=== PATIENT | male | born 1965 | race Caucasian/White ===

== ENCOUNTER 2018-03-04 13:09 | Inpatient (IN) | payer MEDICAID ==
[~2018-03-04] VITALS: Ht 157.5 cm; Wt 52.0 kg
[~2018-03-04 13:09] MED LIST: RANI-290 PO; [UNRECOGNIZED DRUG - CODE] TP
[2018-03-04] MEDS ORDERED: ondansetron/PF 4mg/2ml inj IV ONE (13:25)
[2018-03-04] MEDS ORDERED: normal saline 1000ML IV soln IVB ONE (13:25)
[2018-03-04] MEDS ORDERED: ipratropium/albuterol 3ml nebule NEB ONE (13:40)
[2018-03-04] MEDS ORDERED: albuterol 2.5 MG/3 ML nebule NEB ONE (13:40)
[2018-03-04 13:41] LABS: BASOPHILS # (AUTO) 0.1 X10'3 (0-0.2); BASOPHILS % (AUTO) 0.6 % (0-1); EOSINOPHILS # (AUTO) 0.3 X10'3 (0-0.9); EOSINOPHILS % (AUTO) 1.7 % (0-6); HEMATOCRIT 37.1 % (42.0-52.0); HEMOGLOBIN 12.8 g/dl (14.0-17.9); LYMPHOCYTES # (AUTO) 1.2 X10'3 (1.1-4.8); LYMPHOCYTES % (AUTO) 8.2 % (21-51); MEAN CORPUSCULAR HEMOGLOBIN 30.2 PG (27.0-31.0); MEAN CORPUSCULAR HGB CONC 34.5 % (33.0-36.5); MEAN CORPUSCULAR VOLUME 87.5 FL (78-98); MONOCYTES # (AUTO) 0.5 X10'3 (0-0.9); MONOCYTES % (AUTO) 3.5 % (2-12); NEUTROPHILS # (AUTO) 12.8 X10'3 (1.8-7.7); PLATELET COUNT 558 X10'3 (140-440); RED BLOOD COUNT 4.24 X10'6 (4.70-6.10); WHITE BLOOD COUNT 14.9 X10'3 (4.5-11.0)
[2018-03-04] MEDS ORDERED: ondansetron 4mg rapidly disintigrating tab PO ONE (13:50)
[2018-03-04 13:56] LABS: ALANINE AMINOTRANSFERASE 23 U/L (12-78); ALBUMIN 3.1 G/DL (3.4-5.0); ALBUMIN/GLOBULIN RATIO 0.8 (1.1-1.5); ALKALINE PHOSPHATASE 49 IU/L (46-116); ANION GAP 10 (8-16); BILIRUBIN,TOTAL 0.5 MG/DL (0.1-1.0); BLOOD UREA NITROGEN 35 MG/DL (7-18); BUN/CREATININE RATIO 21.2 (5.4-32.0); CALCIUM 8.6 MG/DL (8.5-10.1); CHLORIDE 103 MMOL/L (99-107); CREATININE 1.65 MG/DL (0.60-1.10); GLUCOSE 80 MG/DL (70-104); LIPASE 69 U/L (73-393); SODIUM 133 MMOL/L (135-145); TOTAL CARBON DIOXIDE 19.8 MMOL/L (24-32); TOTAL PROTEIN 7.2 G/DL (6.4-8.2); eGFR 44 ML/MIN
[2018-03-04 13:59] LABS: ASPARTATE AMINO TRANSFERASE 29 U/L (10-37); POTASSIUM 4.8 MMOL/L (3.5-5.1)
[2018-03-04 15:32] LABS: CLARITY,URINE SLIGHTLY CLOUDY (Clear); GLUCOSE, URINE NEGATIVE (Neg); KETONES,URINE TRACE mg/dl (Neg); LEUKOCYTE ESTERASE ,URINE NEGATIVE (Neg); NITRITES, URINE NEGATIVE (Neg); OCCULT BLOOD,URINE LARGE (Neg); PH,URINE 5.5 (4.8-8.0); PROTEIN,URINE >=300 mg/dl (Neg); UROBILINOGEN,URINE 0.2 E.U/dL (0.2-1.0)
[2018-03-04 15:34] LABS: COLOR,URINE DARK YELLOW (Yellow); UA COLLECTION TYPE CLN CATCH MIDSTREAM
[2018-03-04 15:39] LABS: COARSE GRANULAR CAST 0-3 /LPF (NEGATIVE); MUCUS STRANDS NONE SEEN /LPF (Neg); SQUAMOUS EPITHELIAL CELL,UR FEW /LPF (FEW)
[2018-03-04 15:40] LABS: RBC,URINE TNTC /HPF (0-2)
[2018-03-04 15:43] LABS: BACTERIA,URINE NONE SEEN /HPF (Neg)
[2018-03-04 15:44] LABS: AMORPHOUS URATES 1+
[2018-03-04] MEDS ORDERED: NO HOME MEDS (15:47)
[2018-03-04] MEDS ORDERED: ondansetron/PF 4mg/2ml inj IV PRN (17:30)
[2018-03-04] MEDS ORDERED: magnesium hydroxide 30ml (MOM) UD suspension PO PRN (17:30)
[2018-03-04] MEDS ORDERED: mag hydrox/Alum hydrox/simeth 30ml oral suspension PO PRN (17:30)
[2018-03-04 17:50] LABS: PROTHROMBIN TIME 10.6 SECONDS (9.0-12.0)
[2018-03-04] MEDS ORDERED: bismuth subsalicylate 525mg/30ml oral suspension PO PRN (19:10)
[2018-03-04] MEDS ORDERED: levoFLOXACIN-Levaquin 500mg/D5 100 ML IV ONE (19:10)
[2018-03-04] MEDS: metroNIDAZOLE 500mg tablet PO SCH (20:36)
[2018-03-04] MEDS: lactobacillus rhamnosus 10,000 MMU CELLS/CAPSULE PO SCH (20:37)
[2018-03-04 21:52] VITALS: BP 167/83
[2018-03-04] MEDS ORDERED: pneumococcal 23-VAL P-sac vacc 25 mcg/0.5ml vial IMVAC ONE (22:05)
[2018-03-05 05:00] VITALS: BP 150/78
[2018-03-05 05:47] LABS: BASOPHILS % (AUTO) 0.3 % (0-1); EOSINOPHILS # (AUTO) 0.3 X10'3 (0-0.9); EOSINOPHILS % (AUTO) 2.1 % (0-6); HEMATOCRIT 30.7 % (42.0-52.0); HEMOGLOBIN 10.5 g/dl (14.0-17.9); LYMPHOCYTES # (AUTO) 1.4 X10'3 (1.1-4.8); LYMPHOCYTES % (AUTO) 11.8 % (21-51); MEAN CORPUSCULAR VOLUME 88.1 FL (78-98); MEAN PLATELET VOLUME 6.4 FL (7.4-10.4); MONOCYTES # (AUTO) 0.6 X10'3 (0-0.9); MONOCYTES % (AUTO) 5.4 % (2-12); NEUTROPHILS # (AUTO) 9.6 X10'3 (1.8-7.7); NEUTROPHILS % (AUTO) 80.4 % (42-75); PLATELET COUNT 444 X10'3 (140-440); RED BLOOD COUNT 3.49 X10'6 (4.70-6.10); RED CELL DISTRIBUTION WIDTH 13.8 % (11.5-14.5); WHITE BLOOD COUNT 11.9 X10'3 (4.5-11.0)
[2018-03-05 06:00] LABS: ALBUMIN 2.3 G/DL (3.4-5.0); ANION GAP 7 (8-16); BLOOD UREA NITROGEN 37 MG/DL (7-18); BUN/CREATININE RATIO 21.1 (5.4-32.0); CALCIUM 7.9 MG/DL (8.5-10.1); CHLORIDE 107 MMOL/L (99-107); CREATININE 1.75 MG/DL (0.60-1.10); GLUCOSE 98 MG/DL (70-104); POTASSIUM 4.7 MMOL/L (3.5-5.1); SODIUM 135 MMOL/L (135-145); TOTAL CARBON DIOXIDE 20.7 MMOL/L (24-32); TOTAL PROTEIN 5.5 G/DL (6.4-8.2); eGFR 41 ML/MIN
[2018-03-05] MEDS: ondansetron/PF 4mg/2ml inj IV PRN (06:56)
[2018-03-05] MEDS: acetaminophen 325mg tablet PO PRN (06:56)
[2018-03-05] MEDS: lactobacillus rhamnosus 10,000 MMU CELLS/CAPSULE PO SCH ×2 (07:34→20:55)
[2018-03-05] MEDS: metroNIDAZOLE 500mg tablet PO SCH ×2 (07:34→12:43)
[2018-03-05 09:36] LABS: C DIFF ANTIGEN NEGATIVE (NEGATIVE); C DIFF SPECIMEN=DIARRHEA? ACCEPTABLE; C DIFFICILE TOXINS A&B NEGATIVE (Neg)
[2018-03-05 10:00] VITALS: BP 148/82
[2018-03-05] MEDS ORDERED: LIDOcaine 1%/PF (10mg/ml) 5ml vial ONE (10:54)
[2018-03-05] MEDS ORDERED: levoFLOXACIN-Levaquin 250mg/D5 50 ML IV SCH (17:00)
[2018-03-05 19:00] VITALS: BP 168/92
[2018-03-05] MEDS: CefTRIAXone/D5W-Rocephin 1gm 50 ML IV SCH (20:55)
[2018-03-05] MEDS: azithromycin 250mg tablet PO SCH (20:56)
[2018-03-05] MEDS: albuterol 2.5 MG/3 ML nebule NEB PRN (21:55)
[2018-03-05 22:00] VITALS: BP 170/92
[2018-03-06 02:56] LABS: URINE AMPHETAMINE SCREEN NEGATIVE (Neg); URINE BARBITUATE SCREEN NEGATIVE (Neg); URINE BENZODIAZEPINES SCREEN NEGATIVE (Neg); URINE CANNABINOID SCREEN NEGATIVE (Neg); URINE COCAINE SCREEN NEGATIVE (Neg); URINE METHADONE SCREEN NEGATIVE (Neg); URINE OPIATE SCREEN NEGATIVE (Neg); URINE PHENCYCLIDINE SCREEN NEGATIVE (Neg)
[2018-03-06] MEDS: albuterol 2.5 MG/3 ML nebule NEB PRN ×3 (04:06→20:56)
[2018-03-06 05:44] LABS: BASOPHILS % (AUTO) 0.6 % (0-1); EOSINOPHILS # (AUTO) 0.4 X10'3 (0-0.9); EOSINOPHILS % (AUTO) 5.1 % (0-6); HEMATOCRIT 29.3 % (42.0-52.0); HEMOGLOBIN 9.8 g/dl (14.0-17.9); LYMPHOCYTES # (AUTO) 1.7 X10'3 (1.1-4.8); LYMPHOCYTES % (AUTO) 23.2 % (21-51); MEAN CORPUSCULAR HGB CONC 33.6 % (33.0-36.5); MEAN CORPUSCULAR VOLUME 89.2 FL (78-98); MEAN PLATELET VOLUME 6.4 FL (7.4-10.4); MONOCYTES # (AUTO) 0.7 X10'3 (0-0.9); MONOCYTES % (AUTO) 9.3 % (2-12); NEUTROPHILS # (AUTO) 4.5 X10'3 (1.8-7.7); NEUTROPHILS % (AUTO) 61.8 % (42-75); PLATELET COUNT 435 X10'3 (140-440); RED BLOOD COUNT 3.28 X10'6 (4.70-6.10); RED CELL DISTRIBUTION WIDTH 14.2 % (11.5-14.5); WHITE BLOOD COUNT 7.3 X10'3 (4.5-11.0)
[2018-03-06 06:00] VITALS: BP 169/93
[2018-03-06 06:02] LABS: ALBUMIN 2.5 G/DL (3.4-5.0); ANION GAP 7 (8-16); BLOOD UREA NITROGEN 36 MG/DL (7-18); BUN/CREATININE RATIO 21.6 (5.4-32.0); CALCIUM 8.2 MG/DL (8.5-10.1); CHLORIDE 104 MMOL/L (99-107); CREATININE 1.67 MG/DL (0.60-1.10); GLUCOSE 96 MG/DL (70-104); POTASSIUM 4.6 MMOL/L (3.5-5.1); SODIUM 134 MMOL/L (135-145); TOTAL CARBON DIOXIDE 23.3 MMOL/L (24-32); eGFR 44 ML/MIN
[2018-03-06] MEDS: CefTRIAXone/D5W-Rocephin 1gm 50 ML IV SCH (08:30)
[2018-03-06] MEDS: normal saline 1000ml 1,000 ML IV SCH ×2 (08:30→17:20)
[2018-03-06] MEDS: lactobacillus rhamnosus 10,000 MMU CELLS/CAPSULE PO SCH ×2 (08:30→19:58)
[2018-03-06 11:05] VITALS: BP 174/104
[2018-03-06] MEDS: azithromycin 250mg tablet PO SCH (11:33)
[2018-03-06 18:00] VITALS: BP 185/98
[2018-03-06 19:30] VITALS: BP 166/110
[2018-03-06] MEDS: fluticasone furoate 100MCG/puff inhaler IH SCH (19:33)
[2018-03-06] MEDS: lisinopril 5mg tablet PO SCH (19:58)
[2018-03-06] MEDS: acetaminophen 325mg tablet PO PRN (20:08)
[2018-03-06 22:00] VITALS: BP 173/93
[2018-03-06 22:01] VITALS: BP_SYST 173; BP_SYST 178; BP_DIAS 101; BP_DIAS 93
[2018-03-07 01:20] VITALS: BP 180/99
[2018-03-07 01:21] VITALS: BP 161/89
[2018-03-07] MEDS: ondansetron/PF 4mg/2ml inj IV PRN (05:10)
[2018-03-07 06:00] VITALS: BP 169/91
[2018-03-07 06:11] LABS: BASOPHILS # (AUTO) 0.1 X10'3 (0-0.2); EOSINOPHILS # (AUTO) 0.3 X10'3 (0-0.9); EOSINOPHILS % (AUTO) 3.7 % (0-6); HEMATOCRIT 31.6 % (42.0-52.0); HEMOGLOBIN 10.8 g/dl (14.0-17.9); LYMPHOCYTES # (AUTO) 1.5 X10'3 (1.1-4.8); LYMPHOCYTES % (AUTO) 19.8 % (21-51); MEAN CORPUSCULAR HEMOGLOBIN 30.1 PG (27.0-31.0); MEAN CORPUSCULAR HGB CONC 34.1 % (33.0-36.5); MEAN CORPUSCULAR VOLUME 88.3 FL (78-98); MEAN PLATELET VOLUME 6.7 FL (7.4-10.4); MONOCYTES # (AUTO) 0.6 X10'3 (0-0.9); MONOCYTES % (AUTO) 8.2 % (2-12); NEUTROPHILS # (AUTO) 5.2 X10'3 (1.8-7.7); NEUTROPHILS % (AUTO) 67.3 % (42-75); PLATELET COUNT 433 X10'3 (140-440); RED BLOOD COUNT 3.58 X10'6 (4.70-6.10); RED CELL DISTRIBUTION WIDTH 14.5 % (11.5-14.5); WHITE BLOOD COUNT 7.7 X10'3 (4.5-11.0)
[2018-03-07 06:19] LABS: ALBUMIN 2.5 G/DL (3.4-5.0); ANION GAP 8 (8-16); BLOOD UREA NITROGEN 25 MG/DL (7-18); BUN/CREATININE RATIO 19.8 (5.4-32.0); CALCIUM 8.4 MG/DL (8.5-10.1); CHLORIDE 108 MMOL/L (99-107); CREATININE 1.26 MG/DL (0.60-1.10); GLUCOSE 80 MG/DL (70-104); POTASSIUM 4.8 MMOL/L (3.5-5.1); SODIUM 139 MMOL/L (135-145); TOTAL CARBON DIOXIDE 22.9 MMOL/L (24-32); eGFR 61 ML/MIN
[2018-03-07] MEDS: azithromycin 250mg tablet PO SCH (07:23)
[2018-03-07] MEDS: lisinopril 5mg tablet PO SCH (07:23)
[2018-03-07] MEDS: CefTRIAXone/D5W-Rocephin 1gm 50 ML IV SCH (07:23)
[2018-03-07] MEDS: lactobacillus rhamnosus 10,000 MMU CELLS/CAPSULE PO SCH (07:23)
[2018-03-07] MEDS: fluticasone furoate 100MCG/puff inhaler IH SCH (08:10)
[2018-03-07 10:03] VITALS: BP 170/101
[2018-03-07] MEDS ORDERED: CEFP200T13 PO (11:03)
[2018-03-07] MEDS ORDERED: ALBU8HFA PO (11:03)
== END 2018-03-07 11:49 | disposition home or self-care (01) | DRG 139 ==
LOC: ER 13:11 → ED HOLD 20:37 → ORTHO 4S 21:19
PROVIDERS: ADMIT Internal Medicine; ATTEND Internal Medicine
DX: J18.9 Pneumonia, unspecified organism (principal); N17.9 Acute kidney failure, unspecified; R18.8 Other ascites; J90 Pleural effusion, not elsewhere classified; F20.9 Schizophrenia, unspecified; J44.0 Chronic obstructive pulmonary disease with (acute) lower respiratory infection; A09 Infectious gastroenteritis and colitis, unspecified; E78.00 Pure hypercholesterolemia, unspecified; E86.0 Dehydration; F41.0 Panic disorder [episodic paroxysmal anxiety]; I12.9 Hypertensive chronic kidney disease with stage 1 through stage 4 chronic kidney disease, or unspecified chronic kidney disease; K21.9 Gastro-esophageal reflux disease without esophagitis; N18.9 Chronic kidney disease, unspecified; R31.0 Gross hematuria; F11.90 Opioid use, unspecified, uncomplicated; Z60.2 Problems related to living alone; F15.90 Other stimulant use, unspecified, uncomplicated; F29 Unspecified psychosis not due to a substance or known physiological condition; F31.30 Bipolar disorder, current episode depressed, mild or moderate severity, unspecified; F41.9 Anxiety disorder, unspecified; R91.1 Solitary pulmonary nodule; Z88.6 Allergy status to analgesic agent; Z79.899 Other long term (current) drug therapy
CPT/HCPCS: 36415; 71045; 71046; 74176; 76705; 80048; 80053; 80305; 81001; 83690; 83880; 84155; 85025; 85610; 86713; 87045; 87046; 87070; 87088; 87324; 87449; 89055; 90732; 94640; 94760; 96360; 99285; J0696; J1956; J2001; J2405; J3490; J7030

== ENCOUNTER 2018-03-09 12:21 | Inpatient (IN) | payer MEDICAID ==
[~2018-03-09] VITALS: Ht 157.5 cm; Wt 52.3 kg
[2018-03-09] VITALS (12 sets, daily range): BP systolic 107–168; BP diastolic 65–101
[~2018-03-09 12:21] MED LIST changes: +ALBU8HFA PO; +CEFP200T13 PO; -RANI-290 PO; -[UNRECOGNIZED DRUG - CODE] TP
[2018-03-09] MEDS ORDERED: dexamethasone sod phosphate 10mg/ml inj IV STA (12:24)
[2018-03-09] MEDS ORDERED: vancomycin/NS 1 GM ADD-VANTAGE 250 ML IV ONE (12:25)
[2018-03-09] MEDS ORDERED: normal saline 1000ML IV soln IV ONE (12:25)
[2018-03-09] MEDS ORDERED: ipratropium/albuterol 3ml nebule NEB ONE (12:25)
[2018-03-09] MEDS ORDERED: piperacillin/tazo 3.375gm/50ml 50 ML IV ONE (12:25)
[2018-03-09] MEDS ORDERED: LORazepam 2 mg/ml vial IV ONE ×2 (12:25→12:30)
[2018-03-09] MEDS ORDERED: rocuronium 10mg/ml inj IV ONE (12:40)
[2018-03-09] MEDS ORDERED: etomidate 2mg/ml inj. IV ONE (12:40)
[2018-03-09] MEDS ORDERED: propofol 1000mg/100ml bottle 100 ML IV ONE (12:40)
[2018-03-09] MEDS ORDERED: MIDAZolam 5mg/ml 2ml vial IV ONE (12:40)
[2018-03-09 12:48] LABS: BASOPHILS # (AUTO) 0.1 X10'3 (0-0.2); BASOPHILS % (AUTO) 0.5 % (0-1); EOSINOPHILS # (AUTO) 0.3 X10'3 (0-0.9); EOSINOPHILS % (AUTO) 1.5 % (0-6); HEMATOCRIT 36.9 % (42.0-52.0); HEMOGLOBIN 12.4 g/dl (14.0-17.9); LYMPHOCYTES # (AUTO) 3.4 X10'3 (1.1-4.8); LYMPHOCYTES % (AUTO) 16.6 % (21-51); MEAN CORPUSCULAR HGB CONC 33.6 % (33.0-36.5); MEAN CORPUSCULAR VOLUME 89.2 FL (78-98); MEAN PLATELET VOLUME 6.6 FL (7.4-10.4); MONOCYTES # (AUTO) 1.3 X10'3 (0-0.9); MONOCYTES % (AUTO) 6.5 % (2-12); NEUTROPHILS # (AUTO) 15.3 X10'3 (1.8-7.7); NEUTROPHILS % (AUTO) 74.9 % (42-75); PLATELET COUNT 601 X10'3 (140-440); RED BLOOD COUNT 4.13 X10'6 (4.70-6.10); RED CELL DISTRIBUTION WIDTH 14.5 % (11.5-14.5); WHITE BLOOD COUNT 20.5 X10'3 (4.5-11.0)
[2018-03-09 13:06] LABS: ABG BASE EXCESS -8.5 mmol/L (-2.0-3.0); ABG HCO3 18.3 mmol/L (22.0-26.0); ABG OXYGEN SATURATION 98.9 % (95-98); ABG PCO2 (T) 42.7 mmHg (35.0-48.0); ABG PH (T) 7.251 (7.350-7.450); ABG PO2 (T) 224.2 mmHg (83-108); ALLEN'S TEST Positive; FCOHb 0.6 % (0.5-1.5); FO2Hb 98.3 % (94-100); MINUTE VOLUME 7 L/min; PEEP 5 cm H2O; RESPIRATORY RATE 16 b/min; RESPIRATORY RATE (OBSERVED) 16 b/min; TIDAL VOLUME 400 mL; TOTAL HEMOGLOBIN 12.7 G/dl (14.0-18.0)
[2018-03-09 13:07] LABS: TOTAL CELLS COUNTED 100
[2018-03-09 13:09] LABS: ACANTHOCYTES FEW; BURR CELLS 2+; PLATELET ESTIMATE INCREASED; ROULEAUX 1+
[2018-03-09 13:19] LABS: ALANINE AMINOTRANSFERASE 22 U/L (12-78); ALBUMIN/GLOBULIN RATIO 0.7 (1.1-1.5); ALKALINE PHOSPHATASE 46 IU/L (46-116); ASPARTATE AMINO TRANSFERASE 25 U/L (10-37); BILIRUBIN,TOTAL 0.6 MG/DL (0.1-1.0); BLOOD UREA NITROGEN 26 MG/DL (7-18); BUN/CREATININE RATIO 19.8 (5.4-32.0); CALCIUM 8.7 MG/DL (8.5-10.1); CHLORIDE 106 MMOL/L (99-107); CREATININE 1.31 MG/DL (0.60-1.10); GLUCOSE 130 MG/DL (70-104); MAGNESIUM 2.4 MG/DL (1.5-2.4); POTASSIUM 5.2 MMOL/L (3.5-5.1); TOTAL CARBON DIOXIDE 19.1 MMOL/L (24-32); TOTAL PROTEIN 7.1 G/DL (6.4-8.2); eGFR 58 ML/MIN
[2018-03-09 13:24] LABS: ANION GAP 13 (8-16); SODIUM 138 MMOL/L (135-145)
[2018-03-09 13:36] LABS: CLARITY,URINE CLOUDY (Clear); COLOR,URINE BROWN (Yellow); GLUCOSE, URINE NEGATIVE (Neg); KETONES,URINE TRACE mg/dl (Neg); LEUKOCYTE ESTERASE ,URINE NEGATIVE (Neg); NITRITES, URINE NEGATIVE (Neg); OCCULT BLOOD,URINE LARGE (Neg); PROTEIN,URINE >=300 mg/dl (Neg); UROBILINOGEN,URINE 0.2 E.U/dL (0.2-1.0)
[2018-03-09 13:40] LABS: UA COLLECTION TYPE FOLEY CATH
[2018-03-09 13:44] LABS: URINE AMPHETAMINE SCREEN NEGATIVE (Neg); URINE BARBITUATE SCREEN NEGATIVE (Neg); URINE BENZODIAZEPINES SCREEN NEGATIVE (Neg); URINE CANNABINOID SCREEN NEGATIVE (Neg); URINE COCAINE SCREEN NEGATIVE (Neg); URINE METHADONE SCREEN NEGATIVE (Neg); URINE OPIATE SCREEN NEGATIVE (Neg); URINE PHENCYCLIDINE SCREEN NEGATIVE (Neg)
[2018-03-09 13:45] LABS: BACTERIA,URINE FEW /HPF (Neg); COARSE GRANULAR CAST 0-3 /LPF (NEGATIVE); HYALINE CASTS 0-3 /LPF (NEGATIVE); RBC,URINE TNTC /HPF (0-2)
[2018-03-09 13:46] LABS: CELLULAR CAST 0-4 /LPF (NEGATIVE); SQUAMOUS EPITHELIAL CELL,UR FEW /LPF (FEW)
[2018-03-09] MEDS ORDERED: FENTANYL-0.9 % NACL/PF 100 ML IV PRN (13:54)
[2018-03-09] MEDS ORDERED: midazolam 100mg in NS 100ml 100 ML IV PRN (13:54)
[2018-03-09] MEDS ORDERED: potassium Cl 40MEQ/NS 500ml 500 ML IV PRN ×2 (13:55)
[2018-03-09] MEDS ORDERED: ondansetron/PF 4mg/2ml inj IV PRN (13:55)
[2018-03-09] MEDS ORDERED: acetaminophen 325mg tablet PO PRN ×2 (13:55)
[2018-03-09] MEDS ORDERED: ipratropium/albuterol 3ml nebule NEB PRN (13:55)
[2018-03-09] MEDS ORDERED: potassium Cl 20 mEq SR tablet PO PRN ×2 (13:55)
[2018-03-09] MEDS ORDERED: midazolam 2 mg/2 ml injection IV ONE (13:55)
[2018-03-09] MEDS ORDERED: fentaNYL/PF 50MCG/1 ML 2ML syringe IV PRN (13:55)
[2018-03-09] MEDS: vancomycin/NS 1 GM ADD-VANTAGE 250 ML IV SCH ×2 (14:15→20:39)
[2018-03-09] MEDS: piperacillin/tazo 3.375gm/50ml 50 ML IV SCH ×2 (14:20→20:05)
[2018-03-09] MEDS: normal saline 1000ml 1,000 ML IV SCH (14:21)
[2018-03-09] MEDS: ipratropium/albuterol 3ml nebule NEB SCH ×3 (15:00→23:04)
[2018-03-09] MEDS ORDERED: SULF-14 PO (15:11)
[2018-03-09 16:30] LABS: OXYGEN SATURATION (MIXED VEN) 88.9 % (60-80); PO2 MIXED VENOUS (TEMP COR) 75.9 mmHg (35-46)
[2018-03-09] MEDS ORDERED: CEFPODOXIME PROXETIL 200 MG PO SCH (20:00)
[2018-03-09] MEDS: docusate sod 100mg capsule PO SCH (20:00)
[2018-03-09] MEDS: cefpodoxime proxetil 100mg tablet PO SCH (20:04)
[2018-03-10] VITALS (24 sets, daily range): BP systolic 100–168; BP diastolic 60–111
[2018-03-10] MEDS: piperacillin/tazo 3.375gm/50ml 50 ML IV SCH ×4 (02:38→19:29)
[2018-03-10 02:54] LABS: BASOPHILS % (AUTO) 0.1 % (0-1); EOSINOPHILS # (AUTO) 0.1 X10'3 (0-0.9); EOSINOPHILS % (AUTO) 1.4 % (0-6); HEMATOCRIT 29.4 % (42.0-52.0); HEMOGLOBIN 9.6 g/dl (14.0-17.9); LYMPHOCYTES # (AUTO) 0.4 X10'3 (1.1-4.8); LYMPHOCYTES % (AUTO) 5.5 % (21-51); MEAN CORPUSCULAR HEMOGLOBIN 29.4 PG (27.0-31.0); MEAN CORPUSCULAR HGB CONC 32.8 % (33.0-36.5); MEAN CORPUSCULAR VOLUME 89.4 FL (78-98); MEAN PLATELET VOLUME 6.6 FL (7.4-10.4); MONOCYTES # (AUTO) 0.6 X10'3 (0-0.9); MONOCYTES % (AUTO) 7.1 % (2-12); NEUTROPHILS # (AUTO) 6.7 X10'3 (1.8-7.7); NEUTROPHILS % (AUTO) 85.9 % (42-75); PLATELET COUNT 345 X10'3 (140-440); RED BLOOD COUNT 3.29 X10'6 (4.70-6.10); RED CELL DISTRIBUTION WIDTH 15.1 % (11.5-14.5); WHITE BLOOD COUNT 7.8 X10'3 (4.5-11.0)
[2018-03-10] MEDS: ipratropium/albuterol 3ml nebule NEB SCH ×5 (03:00→20:00)
[2018-03-10 03:09] LABS: ALANINE AMINOTRANSFERASE 14 U/L (12-78); ALBUMIN/GLOBULIN RATIO 0.6 (1.1-1.5); ALKALINE PHOSPHATASE 35 IU/L (46-116); ANION GAP 12 (8-16); ASPARTATE AMINO TRANSFERASE 16 U/L (10-37); BILIRUBIN,TOTAL 0.4 MG/DL (0.1-1.0); BLOOD UREA NITROGEN 33 MG/DL (7-18); BUN/CREATININE RATIO 18.8 (5.4-32.0); CALCIUM 7.1 MG/DL (8.5-10.1); CHLORIDE 109 MMOL/L (99-107); CREATININE 1.76 MG/DL (0.60-1.10); GLUCOSE 123 MG/DL (70-104); PHOSPHORUS 5.8 MG/DL (2.3-4.5); POTASSIUM 5.1 MMOL/L (3.5-5.1); SODIUM 139 MMOL/L (135-145); TOTAL CARBON DIOXIDE 17.6 MMOL/L (24-32); TOTAL PROTEIN 5.2 G/DL (6.4-8.2); eGFR 41 ML/MIN
[2018-03-10 04:30] LABS: ABG HCO3 17.9 mmol/L (22.0-26.0); ABG OXYGEN SATURATION 95.9 % (95-98); ABG PO2 (T) 86.6 mmHg (83-108); ALLEN'S TEST Positive; FCOHb 0.2 % (0.5-1.5); FMetHb 0.1 % (0.3-1.12); FO2Hb 95.6 % (94-100); MINUTE VOLUME 8 L/min; PATIENT TEMPERATURE 36.7; PEEP 10 cm H2O; RESPIRATORY RATE 16 b/min; RESPIRATORY RATE (OBSERVED) 20 b/min; TIDAL VOLUME 350 mL; TOTAL HEMOGLOBIN 10.4 G/dl (14.0-18.0)
[2018-03-10] MEDS: vancomycin/NS 1 GM ADD-VANTAGE 250 ML IV SCH (07:53)
[2018-03-10] MEDS: normal saline 1000ml 1,000 ML IV SCH ×3 (07:54→19:30)
[2018-03-10] MEDS: cefpodoxime proxetil 100mg tablet PO SCH ×2 (07:55→17:44)
[2018-03-10] MEDS: docusate sod 100mg capsule PO SCH ×2 (07:56→19:29)
[2018-03-10] MEDS ORDERED: enoxaparin 40mg/0.4ml syringe SUBCUT SCH (08:00)
[2018-03-10 10:52] LABS: CLARITY,URINE CLOUDY (Clear); COLOR,URINE YELLOW (Yellow); GLUCOSE, URINE NEGATIVE (Neg); KETONES,URINE NEGATIVE (Neg); LEUKOCYTE ESTERASE ,URINE NEGATIVE (Neg); NITRITES, URINE NEGATIVE (Neg); OCCULT BLOOD,URINE LARGE (Neg); PROTEIN,URINE 100 mg/dl (Neg); UROBILINOGEN,URINE 0.2 E.U/dL (0.2-1.0)
[2018-03-10] MEDS ORDERED: racepinephrine 11.25mg/0.5ml nebule NEB PRN (10:55)
[2018-03-10 11:01] LABS: UA COLLECTION TYPE FOLEY CATH
[2018-03-10 11:02] LABS: BACTERIA,URINE NONE SEEN /HPF (Neg); MUCUS STRANDS FEW /LPF (Neg); RBC,URINE 20-50 /HPF (0-2); SQUAMOUS EPITHELIAL CELL,UR FEW /LPF (FEW); WBC,URINE 0-4 /HPF (0-4)
[2018-03-10 11:03] LABS: AMORPHOUS URATES 2+; RENAL CELLS, URINE FEW /HPF; TRANSITIONAL EPI CELLS,URINE FEW /HPF
[2018-03-10 11:22] LABS: UA EOSINOPHILS NO EOS /HPF
[2018-03-10] MEDS ORDERED: normal saline 1000ml 1,000 ML IV ONE (13:40)
[2018-03-10] MEDS: mineral oil/petrolatum ophthal oint EACHEYE SCH ×2 (14:00→19:23)
[2018-03-10] MEDS: ipratropium/albuterol 3ml nebule NEB PRN (15:40)
[2018-03-10] MEDS: lactobacillus rhamnosus 10,000 MMU CELLS/CAPSULE PO SCH (19:29)
[2018-03-11] VITALS (24 sets, daily range): BP systolic 152–199; BP diastolic 88–142
[2018-03-11] MEDS: normal saline 1000ml 1,000 ML IV SCH ×3 (01:37→16:50)
[2018-03-11] MEDS: piperacillin/tazo 3.375gm/50ml 50 ML IV SCH ×4 (01:37→20:21)
[2018-03-11] MEDS: mineral oil/petrolatum ophthal oint EACHEYE SCH ×4 (01:40→19:07)
[2018-03-11] MEDS: ipratropium/albuterol 3ml nebule NEB SCH ×4 (02:15→20:31)
[2018-03-11 02:17] LABS: BASOPHILS % (AUTO) 0.2 % (0-1); EOSINOPHILS # (AUTO) 0.3 X10'3 (0-0.9); HEMATOCRIT 27.7 % (42.0-52.0); HEMOGLOBIN 9.3 g/dl (14.0-17.9); LYMPHOCYTES # (AUTO) 1.4 X10'3 (1.1-4.8); LYMPHOCYTES % (AUTO) 10.8 % (21-51); MEAN CORPUSCULAR HGB CONC 33.5 % (33.0-36.5); MEAN CORPUSCULAR VOLUME 89.7 FL (78-98); MEAN PLATELET VOLUME 6.5 FL (7.4-10.4); MONOCYTES # (AUTO) 1.1 X10'3 (0-0.9); MONOCYTES % (AUTO) 8.3 % (2-12); NEUTROPHILS # (AUTO) 10.2 X10'3 (1.8-7.7); NEUTROPHILS % (AUTO) 78.7 % (42-75); PLATELET COUNT 360 X10'3 (140-440); RED BLOOD COUNT 3.09 X10'6 (4.70-6.10)
[2018-03-11 02:32] LABS: ALANINE AMINOTRANSFERASE 14 U/L (12-78); ALBUMIN 2.3 G/DL (3.4-5.0); ALBUMIN/GLOBULIN RATIO 0.7 (1.1-1.5); ALKALINE PHOSPHATASE 32 IU/L (46-116); ANION GAP 12 (8-16); ASPARTATE AMINO TRANSFERASE 15 U/L (10-37); BILIRUBIN,TOTAL 0.3 MG/DL (0.1-1.0); BLOOD UREA NITROGEN 41 MG/DL (7-18); BUN/CREATININE RATIO 13.5 (5.4-32.0); CALCIUM 7.3 MG/DL (8.5-10.1); CHLORIDE 110 MMOL/L (99-107); CREATININE 3.03 MG/DL (0.60-1.10); GLUCOSE 86 MG/DL (70-104); PHOSPHORUS 5.2 MG/DL (2.3-4.5); POTASSIUM 4.2 MMOL/L (3.5-5.1); SODIUM 139 MMOL/L (135-145); TOTAL CARBON DIOXIDE 16.7 MMOL/L (24-32); TOTAL PROTEIN 5.5 G/DL (6.4-8.2); eGFR 22 ML/MIN
[2018-03-11] MEDS ORDERED: VANCOMYCIN LEVEL IV NR (07:30)
[2018-03-11] MEDS: docusate sod 100mg capsule PO SCH ×2 (08:00→20:21)
[2018-03-11] MEDS ORDERED: vancomycin/NS 1 GM ADD-VANTAGE 250 ML IV SCH (08:00)
[2018-03-11] MEDS: lactobacillus rhamnosus 10,000 MMU CELLS/CAPSULE PO SCH ×2 (08:00→20:21)
[2018-03-11] MEDS ORDERED: MORPHINE 2MG in 2ml NS syringe IV PRN (08:10)
[2018-03-11] MEDS: cefpodoxime proxetil 100mg tablet PO SCH (08:30)
[2018-03-11] MEDS ORDERED: morphine 4 MG/ML inj SYRINge IM ONE (08:55)
[2018-03-11] MEDS: methylPREDNISolone sod succ 125mg/2ml vial IV SCH ×3 (09:48→20:21)
[2018-03-11] MEDS ORDERED: potassium Cl oral solution 20 MEQ/15 ML PO PRN (10:41)
[2018-03-11] MEDS ORDERED: pneumococcal 23-VAL P-sac vacc 25 mcg/0.5ml vial IMVAC ONE (17:35)
[2018-03-12] VITALS (24 sets, daily range): BP systolic 152–189; BP diastolic 91–120
[2018-03-12] MEDS: normal saline 1000ml 1,000 ML IV SCH ×2 (00:27→07:15)
[2018-03-12] MEDS: mineral oil/petrolatum ophthal oint EACHEYE SCH ×4 (01:38→19:57)
[2018-03-12] MEDS: methylPREDNISolone sod succ 125mg/2ml vial IV SCH ×4 (02:06→19:56)
[2018-03-12] MEDS: piperacillin/tazo 3.375gm/50ml 50 ML IV SCH ×4 (02:07→19:56)
[2018-03-12] MEDS: ipratropium/albuterol 3ml nebule NEB SCH ×3 (02:53→19:55)
[2018-03-12 03:07] LABS: BASOPHILS % (AUTO) 0 % (0-1); EOSINOPHILS # (AUTO) 0.2 X10'3 (0-0.9); EOSINOPHILS % (AUTO) 1.5 % (0-6); HEMATOCRIT 29.7 % (42.0-52.0); HEMOGLOBIN 9.7 g/dl (14.0-17.9); LYMPHOCYTES # (AUTO) 0.4 X10'3 (1.1-4.8); LYMPHOCYTES % (AUTO) 2.6 % (21-51); MEAN CORPUSCULAR HEMOGLOBIN 29.5 PG (27.0-31.0); MEAN CORPUSCULAR HGB CONC 32.8 % (33.0-36.5); MEAN CORPUSCULAR VOLUME 89.9 FL (78-98); MEAN PLATELET VOLUME 7.2 FL (7.4-10.4); MONOCYTES # (AUTO) 0.3 X10'3 (0-0.9); MONOCYTES % (AUTO) 2.3 % (2-12); NEUTROPHILS % (AUTO) 93.6 % (42-75); PLATELET COUNT 346 X10'3 (140-440); RED CELL DISTRIBUTION WIDTH 15.1 % (11.5-14.5); WHITE BLOOD COUNT 13.9 X10'3 (4.5-11.0)
[2018-03-12 03:08] LABS: ALANINE AMINOTRANSFERASE 13 U/L (12-78); ALBUMIN 2.2 G/DL (3.4-5.0); ALBUMIN/GLOBULIN RATIO 0.6 (1.1-1.5); ALKALINE PHOSPHATASE 29 IU/L (46-116); ANION GAP 17 (8-16); ASPARTATE AMINO TRANSFERASE 16 U/L (10-37); BILIRUBIN,TOTAL 0.4 MG/DL (0.1-1.0); BLOOD UREA NITROGEN 44 MG/DL (7-18); BUN/CREATININE RATIO 12.5 (5.4-32.0); CALCIUM 7.9 MG/DL (8.5-10.1); CHLORIDE 109 MMOL/L (99-107); CREATININE 3.52 MG/DL (0.60-1.10); GLUCOSE 116 MG/DL (70-104); MAGNESIUM 2.1 MG/DL (1.5-2.4); PHOSPHORUS 6.7 MG/DL (2.3-4.5); POTASSIUM 4.7 MMOL/L (3.5-5.1); SODIUM 140 MMOL/L (135-145); TOTAL PROTEIN 5.9 G/DL (6.4-8.2); VANCOMYCIN,RANDOM 25.9 UG/ML; eGFR 19 ML/MIN
[2018-03-12 03:11] LABS: TOTAL CARBON DIOXIDE 14.3 MMOL/L (24-32)
[2018-03-12] MEDS: lactobacillus rhamnosus 10,000 MMU CELLS/CAPSULE PO SCH ×2 (07:14→19:55)
[2018-03-12] MEDS: enoxaparin 30mg/0.3ml syringe SUBCUT SCH (07:15)
[2018-03-12] MEDS: docusate sod 100mg capsule PO SCH ×2 (07:15→19:55)
[2018-03-12] MEDS ORDERED: vancomycin/NS 1 GM ADD-VANTAGE 250 ML IV PRN (08:00)
[2018-03-12] MEDS ORDERED: VANCOMYCIN LEVEL IV SCH (08:00)
[2018-03-12] MEDS: diltiazem 30mg tablet PO SCH ×3 (13:19→19:55)
[2018-03-12] MEDS ORDERED: furosemide 10 MG/1 ML 10ml inj IV ONE (14:50)
[2018-03-12] MEDS ORDERED: pantoprazole 40mg Tablet.DR PO ONE (17:20)
[2018-03-12] MEDS: morphine 4 MG/ML inj SYRINge IV PRN ×2 (18:32→22:58)
[2018-03-12] MEDS: famotidine 20mg tablet PO SCH (19:55)
[2018-03-12] MEDS ORDERED: mag hydrox/Alum hydrox/simeth 30ml oral suspension PO ONE (21:35)
[2018-03-12] MEDS: amLODIPine 5mg tablet PO SCH (21:43)
[2018-03-13] VITALS (24 sets, daily range): BP systolic 119–180; BP diastolic 65–106
[2018-03-13] MEDS: mineral oil/petrolatum ophthal oint EACHEYE SCH ×4 (02:00→19:35)
[2018-03-13] MEDS: ipratropium/albuterol 3ml nebule NEB SCH ×4 (02:23→20:35)
[2018-03-13] MEDS: diltiazem 30mg tablet PO SCH ×4 (02:24→19:35)
[2018-03-13] MEDS: methylPREDNISolone sod succ 125mg/2ml vial IV SCH ×4 (02:26→19:35)
[2018-03-13] MEDS: piperacillin/tazo 3.375gm/50ml 50 ML IV SCH ×4 (02:26→19:35)
[2018-03-13 03:16] LABS: BASOPHILS % (AUTO) 0 % (0-1); EOSINOPHILS # (AUTO) 0.3 X10'3 (0-0.9); EOSINOPHILS % (AUTO) 1.9 % (0-6); HEMATOCRIT 28.3 % (42.0-52.0); HEMOGLOBIN 9.3 g/dl (14.0-17.9); LYMPHOCYTES # (AUTO) 0.3 X10'3 (1.1-4.8); MEAN CORPUSCULAR HEMOGLOBIN 29.5 PG (27.0-31.0); MEAN CORPUSCULAR HGB CONC 32.9 % (33.0-36.5); MEAN CORPUSCULAR VOLUME 89.7 FL (78-98); MEAN PLATELET VOLUME 7.2 FL (7.4-10.4); MONOCYTES # (AUTO) 0.7 X10'3 (0-0.9); MONOCYTES % (AUTO) 4.8 % (2-12); NEUTROPHILS # (AUTO) 12.9 X10'3 (1.8-7.7); NEUTROPHILS % (AUTO) 91.3 % (42-75); PLATELET COUNT 334 X10'3 (140-440); RED BLOOD COUNT 3.15 X10'6 (4.70-6.10); RED CELL DISTRIBUTION WIDTH 15.3 % (11.5-14.5); WHITE BLOOD COUNT 14.2 X10'3 (4.5-11.0)
[2018-03-13] MEDS: VANCOMYCIN LEVEL IV SCH (03:21)
[2018-03-13 03:26] LABS: ALANINE AMINOTRANSFERASE 14 U/L (12-78); ALBUMIN 2.2 G/DL (3.4-5.0); ALBUMIN/GLOBULIN RATIO 0.6 (1.1-1.5); ALKALINE PHOSPHATASE 25 IU/L (46-116); ANION GAP 14 (8-16); ASPARTATE AMINO TRANSFERASE 15 U/L (10-37); BILIRUBIN,TOTAL 0.4 MG/DL (0.1-1.0); BLOOD UREA NITROGEN 58 MG/DL (7-18); BUN/CREATININE RATIO 14.2 (5.4-32.0); CALCIUM 8.4 MG/DL (8.5-10.1); CHLORIDE 109 MMOL/L (99-107); CREATININE 4.08 MG/DL (0.60-1.10); GLUCOSE 126 MG/DL (70-104); MAGNESIUM 2.2 MG/DL (1.5-2.4); PHOSPHORUS 7.3 MG/DL (2.3-4.5); POTASSIUM 4.8 MMOL/L (3.5-5.1); SODIUM 142 MMOL/L (135-145); TOTAL CARBON DIOXIDE 18.7 MMOL/L (24-32); TOTAL PROTEIN 5.8 G/DL (6.4-8.2); VANCOMYCIN,RANDOM 21.1 UG/ML; eGFR 16 ML/MIN
[2018-03-13] MEDS: enoxaparin 30mg/0.3ml syringe SUBCUT SCH (07:17)
[2018-03-13] MEDS: famotidine 20mg tablet PO SCH ×2 (07:17→19:35)
[2018-03-13] MEDS: amLODIPine 5mg tablet PO SCH (07:17)
[2018-03-13] MEDS: docusate sod 100mg capsule PO SCH ×2 (07:18→19:35)
[2018-03-13] MEDS: lactobacillus rhamnosus 10,000 MMU CELLS/CAPSULE PO SCH ×2 (07:18→19:35)
[2018-03-13] MEDS ORDERED: pantoprazole 40mg Tablet.DR PO SCH (07:30)
[2018-03-13] MEDS ORDERED: VANCOMYCIN LEVEL IV NR (07:30)
[2018-03-13] MEDS ORDERED: vancomycin/NS 1 GM ADD-VANTAGE 250 ML IV PRN (08:15)
[2018-03-13] MEDS: morphine 4 MG/ML inj SYRINge IV PRN ×3 (09:53→22:40)
[2018-03-13] MEDS ORDERED: furosemide 10 MG/1 ML 10ml inj IV ONE (10:35)
[2018-03-13] MEDS: ipratropium/albuterol 3ml nebule NEB PRN (16:30)
[2018-03-13] MEDS: normal saline 1000ml 1,000 ML IV SCH (19:34)
[2018-03-13] MEDS: nicotine 21mg patch - 24 hr TD SCH (23:22)
[2018-03-14] VITALS (24 sets, daily range): BP systolic 113–174; BP diastolic 41–93
[2018-03-14] MEDS: diltiazem 30mg tablet PO SCH ×4 (01:51→19:45)
[2018-03-14] MEDS: piperacillin/tazo 3.375gm/50ml 50 ML IV SCH ×4 (01:51→19:45)
[2018-03-14] MEDS: methylPREDNISolone sod succ 125mg/2ml vial IV SCH ×2 (01:51→07:15)
[2018-03-14] MEDS: mineral oil/petrolatum ophthal oint EACHEYE SCH ×4 (01:51→19:46)
[2018-03-14] MEDS: ipratropium/albuterol 3ml nebule NEB SCH ×4 (02:21→21:16)
[2018-03-14] MEDS: VANCOMYCIN LEVEL IV SCH (03:09)
[2018-03-14 03:15] LABS: BASOPHILS % (AUTO) 0 % (0-1); EOSINOPHILS # (AUTO) 0.1 X10'3 (0-0.9); EOSINOPHILS % (AUTO) 1.2 % (0-6); HEMATOCRIT 27.6 % (42.0-52.0); HEMOGLOBIN 9.1 g/dl (14.0-17.9); LYMPHOCYTES # (AUTO) 0.2 X10'3 (1.1-4.8); LYMPHOCYTES % (AUTO) 1.3 % (21-51); MEAN CORPUSCULAR HEMOGLOBIN 29.8 PG (27.0-31.0); MEAN CORPUSCULAR HGB CONC 33.1 % (33.0-36.5); MEAN PLATELET VOLUME 6.9 FL (7.4-10.4); MONOCYTES # (AUTO) 0.3 X10'3 (0-0.9); MONOCYTES % (AUTO) 2.7 % (2-12); NEUTROPHILS # (AUTO) 11.7 X10'3 (1.8-7.7); NEUTROPHILS % (AUTO) 94.8 % (42-75); PLATELET COUNT 327 X10'3 (140-440); RED BLOOD COUNT 3.07 X10'6 (4.70-6.10); RED CELL DISTRIBUTION WIDTH 15.1 % (11.5-14.5); WHITE BLOOD COUNT 12.3 X10'3 (4.5-11.0)
[2018-03-14 03:37] LABS: ALANINE AMINOTRANSFERASE 13 U/L (12-78); ALBUMIN 2.4 G/DL (3.4-5.0); ALBUMIN/GLOBULIN RATIO 0.6 (1.1-1.5); ALKALINE PHOSPHATASE 28 IU/L (46-116); ANION GAP 16 (8-16); ASPARTATE AMINO TRANSFERASE 16 U/L (10-37); BILIRUBIN,TOTAL 0.3 MG/DL (0.1-1.0); BLOOD UREA NITROGEN 69 MG/DL (7-18); BUN/CREATININE RATIO 14.6 (5.4-32.0); CALCIUM 8.3 MG/DL (8.5-10.1); CHLORIDE 108 MMOL/L (99-107); CREATININE 4.72 MG/DL (0.60-1.10); GLUCOSE 141 MG/DL (70-104); MAGNESIUM 2.4 MG/DL (1.5-2.4); PHOSPHORUS 7.3 MG/DL (2.3-4.5); POTASSIUM 4.2 MMOL/L (3.5-5.1); SODIUM 140 MMOL/L (135-145); TOTAL CARBON DIOXIDE 16.1 MMOL/L (24-32); TOTAL PROTEIN 6.1 G/DL (6.4-8.2); VANCOMYCIN,RANDOM 18.6 UG/ML; eGFR 13 ML/MIN
[2018-03-14] MEDS: enoxaparin 30mg/0.3ml syringe SUBCUT SCH (07:15)
[2018-03-14] MEDS: amLODIPine 5mg tablet PO SCH (07:15)
[2018-03-14] MEDS: famotidine 20mg tablet PO SCH ×2 (07:15→19:45)
[2018-03-14] MEDS: docusate sod 100mg capsule PO SCH ×2 (07:16→19:45)
[2018-03-14] MEDS: lactobacillus rhamnosus 10,000 MMU CELLS/CAPSULE PO SCH ×2 (07:16→19:45)
[2018-03-14] MEDS: methylPREDNISolone sod succ/PF 40mg inj. IV SCH ×2 (13:10→19:45)
[2018-03-14] MEDS: morphine 4 MG/ML inj SYRINge IV PRN ×3 (14:15→22:56)
[2018-03-14] MEDS: furosemide 10 MG/1 ML 10ml inj IV SCH ×2 (14:38→19:46)
[2018-03-14] MEDS ORDERED: temazepam 15mg capsule PO PRN (21:25)
[2018-03-14] MEDS: nicotine 21mg patch - 24 hr TD SCH (22:56)
[2018-03-15] VITALS (24 sets, daily range): BP systolic 119–177; BP diastolic 62–90
[2018-03-15] MEDS: piperacillin/tazo 3.375gm/50ml 50 ML IV SCH ×3 (01:46→13:27)
[2018-03-15] MEDS: mineral oil/petrolatum ophthal oint EACHEYE SCH ×3 (01:47→13:24)
[2018-03-15] MEDS: diltiazem 30mg tablet PO SCH ×4 (01:47→19:23)
[2018-03-15] MEDS: methylPREDNISolone sod succ/PF 40mg inj. IV SCH ×4 (01:47→19:22)
[2018-03-15] MEDS: VANCOMYCIN LEVEL IV SCH (03:00)
[2018-03-15] MEDS: ipratropium/albuterol 3ml nebule NEB SCH ×4 (03:00→20:58)
[2018-03-15 04:47] LABS: BASOPHILS % (AUTO) 0 % (0-1); EOSINOPHILS # (AUTO) 0.1 X10'3 (0-0.9); EOSINOPHILS % (AUTO) 1.4 % (0-6); HEMATOCRIT 24.6 % (42.0-52.0); HEMOGLOBIN 8.1 g/dl (14.0-17.9); LYMPHOCYTES # (AUTO) 0.2 X10'3 (1.1-4.8); LYMPHOCYTES % (AUTO) 1.9 % (21-51); MEAN CORPUSCULAR HEMOGLOBIN 29.8 PG (27.0-31.0); MEAN CORPUSCULAR VOLUME 90.4 FL (78-98); MONOCYTES # (AUTO) 0.3 X10'3 (0-0.9); MONOCYTES % (AUTO) 3.8 % (2-12); NEUTROPHILS # (AUTO) 7.8 X10'3 (1.8-7.7); NEUTROPHILS % (AUTO) 92.9 % (42-75); PLATELET COUNT 284 X10'3 (140-440); RED BLOOD COUNT 2.73 X10'6 (4.70-6.10); RED CELL DISTRIBUTION WIDTH 15.1 % (11.5-14.5); WHITE BLOOD COUNT 8.4 X10'3 (4.5-11.0)
[2018-03-15 05:04] LABS: ALANINE AMINOTRANSFERASE 14 U/L (12-78); ALBUMIN 2.1 G/DL (3.4-5.0); ALBUMIN/GLOBULIN RATIO 0.6 (1.1-1.5); ALKALINE PHOSPHATASE 20 IU/L (46-116); ANION GAP 15 (8-16); ASPARTATE AMINO TRANSFERASE 20 U/L (10-37); BILIRUBIN,TOTAL 0.2 MG/DL (0.1-1.0); BLOOD UREA NITROGEN 80 MG/DL (7-18); BUN/CREATININE RATIO 15.7 (5.4-32.0); CALCIUM 8.2 MG/DL (8.5-10.1); CHLORIDE 107 MMOL/L (99-107); CREATININE 5.11 MG/DL (0.60-1.10); GLUCOSE 109 MG/DL (70-104); MAGNESIUM 2.4 MG/DL (1.5-2.4); PHOSPHORUS 8.8 MG/DL (2.3-4.5); POTASSIUM 4.5 MMOL/L (3.5-5.1); SODIUM 139 MMOL/L (135-145); TOTAL CARBON DIOXIDE 17.2 MMOL/L (24-32); TOTAL PROTEIN 5.4 G/DL (6.4-8.2); VANCOMYCIN,RANDOM 15.8 UG/ML; eGFR 12 ML/MIN
[2018-03-15] MEDS: nicotine 21mg patch - 24 hr TD SCH (08:22)
[2018-03-15] MEDS: enoxaparin 30mg/0.3ml syringe SUBCUT SCH (08:23)
[2018-03-15] MEDS: famotidine 20mg tablet PO SCH ×2 (08:23→19:23)
[2018-03-15] MEDS: lactobacillus rhamnosus 10,000 MMU CELLS/CAPSULE PO SCH ×2 (08:23→19:23)
[2018-03-15] MEDS: docusate sod 100mg capsule PO SCH ×2 (08:23→19:23)
[2018-03-15] MEDS: amLODIPine 5mg tablet PO SCH (08:23)
[2018-03-15] MEDS: furosemide 10 MG/1 ML 10ml inj IV SCH ×3 (09:06→19:23)
[2018-03-15] MEDS: calcium acetate 667mg (PhosLO) capsule PO SCH ×4 (13:00→19:33)
[2018-03-15] MEDS: morphine 4 MG/ML inj SYRINge IV PRN ×2 (13:33→19:14)
[2018-03-15] MEDS ORDERED: furosemide 10 MG/1 ML 10ml inj IV SCH (16:00)
[2018-03-15] MEDS: heparin, porcine 5000 units/ml vial SQ SCH (19:23)
[2018-03-16] VITALS (23 sets, daily range): BP systolic 94–157; BP diastolic 46–86
[2018-03-16] MEDS: ipratropium/albuterol 3ml nebule NEB SCH ×4 (02:28→20:32)
[2018-03-16] MEDS: diltiazem 30mg tablet PO SCH ×2 (02:32→08:23)
[2018-03-16] MEDS: furosemide 10 MG/1 ML 10ml inj IV SCH ×4 (02:32→21:00)
[2018-03-16] MEDS: methylPREDNISolone sod succ/PF 40mg inj. IV SCH ×4 (02:32→21:01)
[2018-03-16] MEDS: morphine 4 MG/ML inj SYRINge IV PRN (02:32)
[2018-03-16] MEDS: VANCOMYCIN LEVEL IV SCH (03:00)
[2018-03-16 04:21] LABS: BASOPHILS % (AUTO) 0 % (0-1); EOSINOPHILS # (AUTO) 0.2 X10'3 (0-0.9); EOSINOPHILS % (AUTO) 1.6 % (0-6); HEMATOCRIT 25.1 % (42.0-52.0); HEMOGLOBIN 8.6 g/dl (14.0-17.9); LYMPHOCYTES # (AUTO) 0.2 X10'3 (1.1-4.8); LYMPHOCYTES % (AUTO) 1.5 % (21-51); MEAN CORPUSCULAR HEMOGLOBIN 30.2 PG (27.0-31.0); MEAN CORPUSCULAR HGB CONC 34.2 % (33.0-36.5); MEAN CORPUSCULAR VOLUME 88.3 FL (78-98); MEAN PLATELET VOLUME 7.4 FL (7.4-10.4); MONOCYTES # (AUTO) 0.3 X10'3 (0-0.9); MONOCYTES % (AUTO) 2.9 % (2-12); NEUTROPHILS # (AUTO) 10.8 X10'3 (1.8-7.7); PLATELET COUNT 332 X10'3 (140-440); RED BLOOD COUNT 2.84 X10'6 (4.70-6.10); RED CELL DISTRIBUTION WIDTH 15.2 % (11.5-14.5); WHITE BLOOD COUNT 11.5 X10'3 (4.5-11.0)
[2018-03-16 04:48] LABS: ALANINE AMINOTRANSFERASE 11 U/L (12-78); ALBUMIN 2.2 G/DL (3.4-5.0); ALBUMIN/GLOBULIN RATIO 0.6 (1.1-1.5); ALKALINE PHOSPHATASE 27 IU/L (46-116); ANION GAP 16 (8-16); ASPARTATE AMINO TRANSFERASE 20 U/L (10-37); BILIRUBIN,TOTAL 0.2 MG/DL (0.1-1.0); BLOOD UREA NITROGEN 94 MG/DL (7-18); BUN/CREATININE RATIO 17.2 (5.4-32.0); CALCIUM 8.4 MG/DL (8.5-10.1); CHLORIDE 107 MMOL/L (99-107); CREATININE 5.46 MG/DL (0.60-1.10); GLUCOSE 132 MG/DL (70-104); MAGNESIUM 2.5 MG/DL (1.5-2.4); SODIUM 140 MMOL/L (135-145); TOTAL CARBON DIOXIDE 16.7 MMOL/L (24-32); TOTAL PROTEIN 5.6 G/DL (6.4-8.2); VANCOMYCIN,RANDOM 14.4 UG/ML; eGFR 11 ML/MIN
[2018-03-16] MEDS: nicotine 21mg patch - 24 hr TD SCH (08:00)
[2018-03-16] MEDS: calcium acetate 667mg (PhosLO) capsule PO SCH ×4 (08:00→18:23)
[2018-03-16] MEDS: docusate sod 100mg capsule PO SCH ×2 (08:23→20:00)
[2018-03-16] MEDS: amLODIPine 5mg tablet PO SCH (08:24)
[2018-03-16] MEDS: lactobacillus rhamnosus 10,000 MMU CELLS/CAPSULE PO SCH ×2 (08:24→21:01)
[2018-03-16] MEDS: famotidine 20mg tablet PO SCH ×2 (08:24→21:01)
[2018-03-16] MEDS: heparin, porcine 5000 units/ml vial SQ SCH ×2 (08:26→21:01)
[2018-03-17] VITALS (33 sets, daily range): BP systolic 126–168; BP diastolic 62–94
[2018-03-17] MEDS: methylPREDNISolone sod succ/PF 40mg inj. IV SCH ×4 (02:00→20:28)
[2018-03-17] MEDS: furosemide 10 MG/1 ML 10ml inj IV SCH ×4 (02:00→20:28)
[2018-03-17] MEDS: ipratropium/albuterol 3ml nebule NEB SCH ×4 (03:00→20:38)
[2018-03-17 06:47] LABS: BASOPHILS % (AUTO) 0 % (0-1); EOSINOPHILS # (AUTO) 0.2 X10'3 (0-0.9); EOSINOPHILS % (AUTO) 1.1 % (0-6); LYMPHOCYTES # (AUTO) 0.2 X10'3 (1.1-4.8); LYMPHOCYTES % (AUTO) 1.3 % (21-51); MEAN CORPUSCULAR HEMOGLOBIN 29.5 PG (27.0-31.0); MEAN CORPUSCULAR HGB CONC 33.2 % (33.0-36.5); MEAN CORPUSCULAR VOLUME 88.8 FL (78-98); MEAN PLATELET VOLUME 7.1 FL (7.4-10.4); MONOCYTES # (AUTO) 0.5 X10'3 (0-0.9); MONOCYTES % (AUTO) 3.3 % (2-12); NEUTROPHILS # (AUTO) 14.8 X10'3 (1.8-7.7); NEUTROPHILS % (AUTO) 94.3 % (42-75); PLATELET COUNT 278 X10'3 (140-440); RED BLOOD COUNT 1.99 X10'6 (4.70-6.10); RED CELL DISTRIBUTION WIDTH 15.1 % (11.5-14.5); WHITE BLOOD COUNT 15.7 X10'3 (4.5-11.0)
[2018-03-17 07:01] LABS: HEMATOCRIT 17.7 % (42.0-52.0); HEMOGLOBIN 5.9 g/dl (14.0-17.9)
[2018-03-17 07:25] LABS: ALANINE AMINOTRANSFERASE 14 U/L (12-78); ALBUMIN 1.8 G/DL (3.4-5.0); ALBUMIN/GLOBULIN RATIO 0.6 (1.1-1.5); ALKALINE PHOSPHATASE 23 IU/L (46-116); ANION GAP 17 (8-16); ASPARTATE AMINO TRANSFERASE 23 U/L (10-37); BILIRUBIN,TOTAL 0.3 MG/DL (0.1-1.0); BLOOD UREA NITROGEN 125 MG/DL (7-18); BUN/CREATININE RATIO 20.9 (5.4-32.0); CALCIUM 8.1 MG/DL (8.5-10.1); CHLORIDE 106 MMOL/L (99-107); CREATININE 5.98 MG/DL (0.60-1.10); GLUCOSE 103 MG/DL (70-104); MAGNESIUM 2.2 MG/DL (1.5-2.4); PHOSPHORUS 8.6 MG/DL (2.3-4.5); POTASSIUM 4.4 MMOL/L (3.5-5.1); SODIUM 141 MMOL/L (135-145); TOTAL CARBON DIOXIDE 18.5 MMOL/L (24-32); TOTAL PROTEIN 4.6 G/DL (6.4-8.2); eGFR 10 ML/MIN
[2018-03-17] MEDS: lactobacillus rhamnosus 10,000 MMU CELLS/CAPSULE PO SCH ×2 (08:23→20:29)
[2018-03-17] MEDS: docusate sod 100mg capsule PO SCH ×2 (08:23→20:29)
[2018-03-17] MEDS: famotidine 20mg tablet PO SCH ×2 (08:23→20:29)
[2018-03-17] MEDS: calcium acetate 667mg (PhosLO) capsule PO SCH ×3 (08:23→17:13)
[2018-03-17] MEDS: heparin, porcine 5000 units/ml vial SQ SCH ×2 (08:23→20:29)
[2018-03-17] MEDS: amLODIPine 5mg tablet PO SCH (08:23)
[2018-03-17] MEDS: nicotine 21mg patch - 24 hr TD SCH (08:24)
[2018-03-17] MEDS ORDERED: epoetin 20,000 units/ml inj SQ ONE (09:20)
[2018-03-17 11:39] LABS: FERRITIN 213 NG/ML (26-388)
[2018-03-17 11:44] LABS: % IRON SATURATION 68 % (11-46); IRON 77 UG/DL (53-167); TOTAL IRON BINDING CAPACITY 113 UG/DL (259-388)
[2018-03-17 18:47] LABS: OCCULT BLOOD STOOL POSITIVE (Neg)
[2018-03-18] VITALS (22 sets, daily range): BP systolic 139–164; BP diastolic 64–87
[2018-03-18] MEDS: methylPREDNISolone sod succ/PF 40mg inj. IV SCH ×4 (02:11→20:18)
[2018-03-18] MEDS: furosemide 10 MG/1 ML 10ml inj IV SCH ×4 (02:12→20:19)
[2018-03-18] MEDS: ipratropium/albuterol 3ml nebule NEB SCH ×4 (03:31→20:12)
[2018-03-18 04:48] LABS: BASOPHILS % (AUTO) 0 % (0-1); EOSINOPHILS # (AUTO) 0.3 X10'3 (0-0.9); EOSINOPHILS % (AUTO) 1.8 % (0-6); HEMATOCRIT 27.4 % (42.0-52.0); HEMOGLOBIN 9.4 g/dl (14.0-17.9); LYMPHOCYTES # (AUTO) 0.1 X10'3 (1.1-4.8); LYMPHOCYTES % (AUTO) 0.8 % (21-51); MEAN CORPUSCULAR HEMOGLOBIN 29.9 PG (27.0-31.0); MEAN CORPUSCULAR HGB CONC 34.1 % (33.0-36.5); MEAN CORPUSCULAR VOLUME 87.8 FL (78-98); MEAN PLATELET VOLUME 7.7 FL (7.4-10.4); MONOCYTES # (AUTO) 0.5 X10'3 (0-0.9); MONOCYTES % (AUTO) 2.7 % (2-12); NEUTROPHILS # (AUTO) 16.7 X10'3 (1.8-7.7); NEUTROPHILS % (AUTO) 94.7 % (42-75); PLATELET COUNT 242 X10'3 (140-440); RED BLOOD COUNT 3.13 X10'6 (4.70-6.10); RED CELL DISTRIBUTION WIDTH 14.1 % (11.5-14.5); WHITE BLOOD COUNT 17.6 X10'3 (4.5-11.0)
[2018-03-18 05:02] LABS: ALANINE AMINOTRANSFERASE 21 U/L (12-78); ALBUMIN/GLOBULIN RATIO 0.7 (1.1-1.5); ALKALINE PHOSPHATASE 34 IU/L (46-116); ANION GAP 17 (8-16); ASPARTATE AMINO TRANSFERASE 25 U/L (10-37); BILIRUBIN,TOTAL 0.2 MG/DL (0.1-1.0); BLOOD UREA NITROGEN 143 MG/DL (7-18); BUN/CREATININE RATIO 23.9 (5.4-32.0); CALCIUM 8.5 MG/DL (8.5-10.1); CHLORIDE 103 MMOL/L (99-107); CREATININE 5.99 MG/DL (0.60-1.10); GLUCOSE 114 MG/DL (70-104); MAGNESIUM 2.3 MG/DL (1.5-2.4); PHOSPHORUS 7.5 MG/DL (2.3-4.5); SODIUM 139 MMOL/L (135-145); TOTAL CARBON DIOXIDE 19.4 MMOL/L (24-32); eGFR 10 ML/MIN
[2018-03-18] MEDS: docusate sod 100mg capsule PO SCH ×2 (08:00→20:18)
[2018-03-18] MEDS: lactobacillus rhamnosus 10,000 MMU CELLS/CAPSULE PO SCH ×2 (08:28→20:18)
[2018-03-18] MEDS: famotidine 20mg tablet PO SCH ×2 (08:28→20:18)
[2018-03-18] MEDS: calcium acetate 667mg (PhosLO) capsule PO SCH ×3 (08:28→17:52)
[2018-03-18] MEDS: amLODIPine 5mg tablet PO SCH (08:28)
[2018-03-18] MEDS: heparin, porcine 5000 units/ml vial SQ SCH (08:29)
[2018-03-18] MEDS: nicotine 21mg patch - 24 hr TD SCH (08:31)
[2018-03-18] MEDS ORDERED: famotidine/PF 10 mg/ml inj IV SCH (09:25)
[2018-03-18] MEDS: epoetin 20,000 units/ml inj SQ SCH (09:44)
[2018-03-19] VITALS (21 sets, daily range): BP systolic 137–169; BP diastolic 66–89
[2018-03-19] MEDS: methylPREDNISolone sod succ/PF 40mg inj. IV SCH ×2 (02:40→07:48)
[2018-03-19] MEDS: furosemide 10 MG/1 ML 10ml inj IV SCH ×4 (02:40→19:33)
[2018-03-19] MEDS: ipratropium/albuterol 3ml nebule NEB SCH ×4 (03:00→20:18)
[2018-03-19 03:33] LABS: BASOPHILS % (AUTO) 0 % (0-1); EOSINOPHILS # (AUTO) 0.3 X10'3 (0-0.9); EOSINOPHILS % (AUTO) 2.4 % (0-6); HEMATOCRIT 23.5 % (42.0-52.0); HEMOGLOBIN 8.1 g/dl (14.0-17.9); LYMPHOCYTES # (AUTO) 0.2 X10'3 (1.1-4.8); LYMPHOCYTES % (AUTO) 1.6 % (21-51); MEAN CORPUSCULAR HEMOGLOBIN 29.9 PG (27.0-31.0); MEAN CORPUSCULAR HGB CONC 34.2 % (33.0-36.5); MEAN CORPUSCULAR VOLUME 87.5 FL (78-98); MEAN PLATELET VOLUME 7.7 FL (7.4-10.4); MONOCYTES # (AUTO) 0.4 X10'3 (0-0.9); MONOCYTES % (AUTO) 3.1 % (2-12); NEUTROPHILS # (AUTO) 10.6 X10'3 (1.8-7.7); NEUTROPHILS % (AUTO) 92.9 % (42-75); PLATELET COUNT 246 X10'3 (140-440); RED BLOOD COUNT 2.69 X10'6 (4.70-6.10); RED CELL DISTRIBUTION WIDTH 14.5 % (11.5-14.5); WHITE BLOOD COUNT 11.4 X10'3 (4.5-11.0)
[2018-03-19 03:47] LABS: ALANINE AMINOTRANSFERASE 26 U/L (12-78); ALBUMIN/GLOBULIN RATIO 0.7 (1.1-1.5); ALKALINE PHOSPHATASE 36 IU/L (46-116); ANION GAP 14 (8-16); ASPARTATE AMINO TRANSFERASE 25 U/L (10-37); BILIRUBIN,TOTAL 0.2 MG/DL (0.1-1.0); CALCIUM 8.2 MG/DL (8.5-10.1); CHLORIDE 102 MMOL/L (99-107); CREATININE 5.84 MG/DL (0.60-1.10); GLUCOSE 117 MG/DL (70-104); MAGNESIUM 2.1 MG/DL (1.5-2.4); PHOSPHORUS 6.9 MG/DL (2.3-4.5); POTASSIUM 3.9 MMOL/L (3.5-5.1); SODIUM 136 MMOL/L (135-145); TOTAL CARBON DIOXIDE 19.6 MMOL/L (24-32); TOTAL PROTEIN 4.8 G/DL (6.4-8.2); eGFR 10 ML/MIN
[2018-03-19 03:50] LABS: BLOOD UREA NITROGEN 163 MG/DL (7-18); BUN/CREATININE RATIO 27.9 (5.4-32.0)
[2018-03-19] MEDS: amLODIPine 5mg tablet PO SCH (07:47)
[2018-03-19] MEDS: lactobacillus rhamnosus 10,000 MMU CELLS/CAPSULE PO SCH ×2 (07:47→19:33)
[2018-03-19] MEDS: famotidine 20mg tablet PO SCH ×2 (07:47→19:33)
[2018-03-19] MEDS: nicotine 21mg patch - 24 hr TD SCH (07:47)
[2018-03-19] MEDS: calcium acetate 667mg (PhosLO) capsule PO SCH ×3 (07:47→19:03)
[2018-03-19] MEDS: docusate sod 100mg capsule PO SCH ×2 (08:00→19:33)
[2018-03-20] MEDS: furosemide 10 MG/1 ML 10ml inj IV SCH ×4 (02:57→20:39)
[2018-03-20 03:00] VITALS: BP 162/76
[2018-03-20] MEDS: ipratropium/albuterol 3ml nebule NEB SCH ×4 (03:00→21:25)
[2018-03-20 06:00] VITALS: BP 167/76
[2018-03-20] MEDS: lactobacillus rhamnosus 10,000 MMU CELLS/CAPSULE PO SCH ×2 (08:00→20:40)
[2018-03-20] MEDS: amLODIPine 5mg tablet PO SCH (08:00)
[2018-03-20] MEDS: docusate sod 100mg capsule PO SCH ×2 (08:00→20:40)
[2018-03-20] MEDS: calcium acetate 667mg (PhosLO) capsule PO SCH ×3 (08:00→17:29)
[2018-03-20] MEDS: famotidine 20mg tablet PO SCH ×2 (08:00→20:40)
[2018-03-20] MEDS: nicotine 21mg patch - 24 hr TD SCH (08:02)
[2018-03-20] MEDS: predniSONE 20 mg tablet PO SCH (08:13)
[2018-03-20 10:52] LABS: HEMATOCRIT 27.1 % (42.0-52.0); HEMOGLOBIN 9.3 g/dl (14.0-17.9); MEAN CORPUSCULAR HEMOGLOBIN 29.9 PG (27.0-31.0); MEAN CORPUSCULAR HGB CONC 34.3 % (33.0-36.5); MEAN CORPUSCULAR VOLUME 87.4 FL (78-98); MEAN PLATELET VOLUME 7.2 FL (7.4-10.4); PLATELET COUNT 357 X10'3 (140-440); RED CELL DISTRIBUTION WIDTH 14.4 % (11.5-14.5)
[2018-03-20 10:57] LABS: WHITE BLOOD COUNT 26.9 X10'3 (4.5-11.0)
[2018-03-20 11:00] VITALS: BP 143/58
[2018-03-20] MEDS: epoetin 20,000 units/ml inj SQ SCH (13:28)
[2018-03-20 15:00] VITALS: BP 147/77
[2018-03-20 19:00] VITALS: BP 144/78
[2018-03-20 23:00] VITALS: BP 156/77
[2018-03-21] MEDS: ipratropium/albuterol 3ml nebule NEB SCH ×4 (02:54→21:02)
[2018-03-21 03:00] VITALS: BP 148/74
[2018-03-21] MEDS: furosemide 10 MG/1 ML 10ml inj IV SCH ×4 (03:05→20:13)
[2018-03-21 05:34] LABS: BASOPHILS % (AUTO) 0 % (0-1); EOSINOPHILS # (AUTO) 0.4 X10'3 (0-0.9); EOSINOPHILS % (AUTO) 2.6 % (0-6); HEMATOCRIT 23.2 % (42.0-52.0); HEMOGLOBIN 7.9 g/dl (14.0-17.9); LYMPHOCYTES # (AUTO) 0.5 X10'3 (1.1-4.8); LYMPHOCYTES % (AUTO) 3.6 % (21-51); MEAN CORPUSCULAR HEMOGLOBIN 29.5 PG (27.0-31.0); MEAN CORPUSCULAR HGB CONC 33.9 % (33.0-36.5); MEAN CORPUSCULAR VOLUME 87.2 FL (78-98); MEAN PLATELET VOLUME 7.1 FL (7.4-10.4); MONOCYTES # (AUTO) 0.8 X10'3 (0-0.9); MONOCYTES % (AUTO) 5.1 % (2-12); NEUTROPHILS # (AUTO) 13.4 X10'3 (1.8-7.7); NEUTROPHILS % (AUTO) 88.7 % (42-75); PLATELET COUNT 323 X10'3 (140-440); RED BLOOD COUNT 2.66 X10'6 (4.70-6.10); RED CELL DISTRIBUTION WIDTH 14.5 % (11.5-14.5); WHITE BLOOD COUNT 15.1 X10'3 (4.5-11.0)
[2018-03-21 06:00] VITALS: BP 156/80
[2018-03-21 06:22] LABS: ALANINE AMINOTRANSFERASE 49 U/L (12-78); ALBUMIN 2.2 G/DL (3.4-5.0); ALBUMIN/GLOBULIN RATIO 0.8 (1.1-1.5); ALKALINE PHOSPHATASE 42 IU/L (46-116); ANION GAP 16 (8-16); ASPARTATE AMINO TRANSFERASE 41 U/L (10-37); BILIRUBIN,TOTAL 0.3 MG/DL (0.1-1.0); CALCIUM 8.6 MG/DL (8.5-10.1); CHLORIDE 102 MMOL/L (99-107); CREATININE 5.63 MG/DL (0.60-1.10); GLUCOSE 75 MG/DL (70-104); PHOSPHORUS 6.7 MG/DL (2.3-4.5); POTASSIUM 3.3 MMOL/L (3.5-5.1); SODIUM 140 MMOL/L (135-145); TOTAL CARBON DIOXIDE 21.9 MMOL/L (24-32); TOTAL PROTEIN 4.9 G/DL (6.4-8.2); eGFR 11 ML/MIN
[2018-03-21 07:28] LABS: BLOOD UREA NITROGEN 161 MG/DL (7-18); BUN/CREATININE RATIO 28.6 (5.4-32.0)
[2018-03-21] MEDS: amLODIPine 5mg tablet PO SCH (07:54)
[2018-03-21] MEDS: lactobacillus rhamnosus 10,000 MMU CELLS/CAPSULE PO SCH ×2 (07:54→20:13)
[2018-03-21] MEDS: calcium acetate 667mg (PhosLO) capsule PO SCH ×3 (07:54→17:25)
[2018-03-21] MEDS: docusate sod 100mg capsule PO SCH ×2 (07:54→20:13)
[2018-03-21] MEDS: famotidine 20mg tablet PO SCH ×2 (07:54→20:13)
[2018-03-21] MEDS: nicotine 21mg patch - 24 hr TD SCH (07:55)
[2018-03-21] MEDS: potassium Cl oral solution 20 MEQ/15 ML PO PRN ×3 (08:01→17:25)
[2018-03-21] MEDS: predniSONE 20 mg tablet PO SCH (08:01)
[2018-03-21 11:00] VITALS: BP 160/79
[2018-03-21 15:00] VITALS: BP 160/75
[2018-03-21 19:00] VITALS: BP 162/76
[2018-03-21 23:00] VITALS: BP 148/78
[2018-03-22] MEDS: furosemide 10 MG/1 ML 10ml inj IV SCH ×4 (02:17→20:32)
[2018-03-22 03:00] VITALS: BP 134/66
[2018-03-22] MEDS: ipratropium/albuterol 3ml nebule NEB SCH ×4 (03:25→20:03)
[2018-03-22 06:00] VITALS: BP 151/71
[2018-03-22 06:32] LABS: BASOPHILS % (AUTO) 0.1 % (0-1); EOSINOPHILS # (AUTO) 0.2 X10'3 (0-0.9); EOSINOPHILS % (AUTO) 1.5 % (0-6); HEMOGLOBIN 7.1 g/dl (14.0-17.9); LYMPHOCYTES # (AUTO) 0.5 X10'3 (1.1-4.8); LYMPHOCYTES % (AUTO) 3.6 % (21-51); MEAN CORPUSCULAR HEMOGLOBIN 30.1 PG (27.0-31.0); MEAN CORPUSCULAR HGB CONC 34.4 % (33.0-36.5); MEAN CORPUSCULAR VOLUME 87.5 FL (78-98); MEAN PLATELET VOLUME 7.5 FL (7.4-10.4); MONOCYTES # (AUTO) 0.5 X10'3 (0-0.9); MONOCYTES % (AUTO) 3.5 % (2-12); NEUTROPHILS # (AUTO) 13.5 X10'3 (1.8-7.7); NEUTROPHILS % (AUTO) 91.3 % (42-75); PLATELET COUNT 330 X10'3 (140-440); RED BLOOD COUNT 2.36 X10'6 (4.70-6.10); RED CELL DISTRIBUTION WIDTH 14.4 % (11.5-14.5); WHITE BLOOD COUNT 14.7 X10'3 (4.5-11.0)
[2018-03-22 06:45] LABS: HEMATOCRIT 20.6 % (42.0-52.0)
[2018-03-22 07:00] LABS: ALANINE AMINOTRANSFERASE 49 U/L (12-78); ALBUMIN 2.1 G/DL (3.4-5.0); ALBUMIN/GLOBULIN RATIO 0.8 (1.1-1.5); ALKALINE PHOSPHATASE 41 IU/L (46-116); ANION GAP 14 (8-16); ASPARTATE AMINO TRANSFERASE 36 U/L (10-37); BILIRUBIN,TOTAL 0.2 MG/DL (0.1-1.0); CALCIUM 8.6 MG/DL (8.5-10.1); CHLORIDE 101 MMOL/L (99-107); CREATININE 5.45 MG/DL (0.60-1.10); GLUCOSE 87 MG/DL (70-104); MAGNESIUM 2.2 MG/DL (1.5-2.4); PHOSPHORUS 6.2 MG/DL (2.3-4.5); POTASSIUM 3.9 MMOL/L (3.5-5.1); SODIUM 138 MMOL/L (135-145); TOTAL PROTEIN 4.8 G/DL (6.4-8.2); eGFR 11 ML/MIN
[2018-03-22 07:02] LABS: BLOOD UREA NITROGEN 161 MG/DL (7-18); BUN/CREATININE RATIO 29.5 (5.4-32.0)
[2018-03-22] MEDS: famotidine 20mg tablet PO SCH ×2 (07:38→20:31)
[2018-03-22] MEDS: lactobacillus rhamnosus 10,000 MMU CELLS/CAPSULE PO SCH ×2 (07:38→20:31)
[2018-03-22] MEDS: nicotine 21mg patch - 24 hr TD SCH (07:38)
[2018-03-22] MEDS: amLODIPine 5mg tablet PO SCH (07:38)
[2018-03-22] MEDS: docusate sod 100mg capsule PO SCH ×2 (07:38→20:31)
[2018-03-22] MEDS: calcium acetate 667mg (PhosLO) capsule PO SCH ×3 (07:38→17:39)
[2018-03-22] MEDS ORDERED: predniSONE 20 mg tablet PO SCH (08:30)
[2018-03-22] MEDS: epoetin 20,000 units/ml inj SQ SCH (09:21)
[2018-03-22 11:00] VITALS: BP 150/70
[2018-03-22 15:00] VITALS: BP 144/70
[2018-03-22 19:00] VITALS: BP 158/83
[2018-03-22 23:00] VITALS: BP 166/78
[2018-03-23] MEDS: furosemide 10 MG/1 ML 10ml inj IV SCH ×4 (02:03→19:18)
[2018-03-23] MEDS: ipratropium/albuterol 3ml nebule NEB SCH ×4 (02:41→21:00)
[2018-03-23 03:00] VITALS: BP 134/74
[2018-03-23 06:00] VITALS: BP 137/74
[2018-03-23 06:01] LABS: BASOPHILS % (AUTO) 0.1 % (0-1); EOSINOPHILS # (AUTO) 0.5 X10'3 (0-0.9); EOSINOPHILS % (AUTO) 2.8 % (0-6); HEMATOCRIT 23.2 % (42.0-52.0); HEMOGLOBIN 7.9 g/dl (14.0-17.9); LYMPHOCYTES # (AUTO) 0.7 X10'3 (1.1-4.8); LYMPHOCYTES % (AUTO) 3.8 % (21-51); MEAN CORPUSCULAR HEMOGLOBIN 30.3 PG (27.0-31.0); MEAN CORPUSCULAR HGB CONC 34.3 % (33.0-36.5); MEAN CORPUSCULAR VOLUME 88.5 FL (78-98); MEAN PLATELET VOLUME 7.1 FL (7.4-10.4); MONOCYTES # (AUTO) 0.8 X10'3 (0-0.9); MONOCYTES % (AUTO) 4.4 % (2-12); NEUTROPHILS # (AUTO) 15.7 X10'3 (1.8-7.7); NEUTROPHILS % (AUTO) 88.9 % (42-75); PLATELET COUNT 383 X10'3 (140-440); RED BLOOD COUNT 2.62 X10'6 (4.70-6.10); RED CELL DISTRIBUTION WIDTH 15.1 % (11.5-14.5); WHITE BLOOD COUNT 17.7 X10'3 (4.5-11.0)
[2018-03-23 06:25] LABS: ALANINE AMINOTRANSFERASE 67 U/L (12-78); ALBUMIN 2.4 G/DL (3.4-5.0); ALBUMIN/GLOBULIN RATIO 0.8 (1.1-1.5); ALKALINE PHOSPHATASE 50 IU/L (46-116); ANION GAP 13 (8-16); ASPARTATE AMINO TRANSFERASE 44 U/L (10-37); BILIRUBIN,TOTAL 0.3 MG/DL (0.1-1.0); BLOOD UREA NITROGEN 147 MG/DL (7-18); BUN/CREATININE RATIO 27.1 (5.4-32.0); CALCIUM 8.5 MG/DL (8.5-10.1); CHLORIDE 101 MMOL/L (99-107); CREATININE 5.42 MG/DL (0.60-1.10); GLUCOSE 84 MG/DL (70-104); MAGNESIUM 2.1 MG/DL (1.5-2.4); PHOSPHORUS 5.2 MG/DL (2.3-4.5); POTASSIUM 3.6 MMOL/L (3.5-5.1); SODIUM 140 MMOL/L (135-145); TOTAL CARBON DIOXIDE 26.5 MMOL/L (24-32); TOTAL PROTEIN 5.4 G/DL (6.4-8.2); eGFR 11 ML/MIN
[2018-03-23] MEDS: docusate sod 100mg capsule PO SCH ×2 (07:38→19:19)
[2018-03-23] MEDS: lactobacillus rhamnosus 10,000 MMU CELLS/CAPSULE PO SCH ×2 (07:38→19:19)
[2018-03-23] MEDS: famotidine 20mg tablet PO SCH ×2 (07:38→19:19)
[2018-03-23] MEDS: calcium acetate 667mg (PhosLO) capsule PO SCH ×3 (07:38→17:36)
[2018-03-23] MEDS: amLODIPine 5mg tablet PO SCH (07:39)
[2018-03-23] MEDS: nicotine 21mg patch - 24 hr TD SCH (07:39)
[2018-03-23] MEDS ORDERED: predniSONE 20 mg tablet PO SCH (08:30)
[2018-03-23 11:00] VITALS: BP 148/82
[2018-03-23 15:00] VITALS: BP 156/79
[2018-03-23 19:00] VITALS: BP 133/65
[2018-03-23 23:00] VITALS: BP 171/66
[2018-03-24 03:00] VITALS: BP 139/66
[2018-03-24] MEDS: ipratropium/albuterol 3ml nebule NEB SCH (03:00)
[2018-03-24] MEDS: furosemide 10 MG/1 ML 10ml inj IV SCH (03:05)
[2018-03-24 06:00] VITALS: BP 150/81
[2018-06-11] MEDS ORDERED: etomidate 2mg/ml inj. ONE (07:00)
[2018-06-11] MEDS ORDERED: rocuronium 10mg/ml inj IV ONE (07:00)
[2018-06-11] MEDS ORDERED: LIDOcaine 2% 5ml jelly ONE (07:00)
== END 2018-03-24 07:30 | disposition left against medical advice (07) | DRG 469 ==
LOC: ER 12:21 → ED HOLD 13:54 → EDBEDREQ 15:00 → CICU 2S 15:52 → PCU 3S 03-19 21:12
PROVIDERS: ADMIT Internal Medicine Critical Care Medicine
PROC: 02HV33Z Insertion of Infusion Device into Superior Vena Cava, Percutaneous Approach (ICD-10-PCS; 2018-03-09)
PROC: 5A1935Z Respiratory Ventilation, Less than 24 Consecutive Hours (ICD-10-PCS; principal; 2018-03-10)
PROC: 0BH17EZ Insertion of Endotracheal Airway into Trachea, Via Natural or Artificial Opening (ICD-10-PCS; 2018-03-10)
PROC: 5A09357 Assistance with Respiratory Ventilation, Less than 24 Consecutive Hours, Continuous Positive Airway Pressure (ICD-10-PCS; 2018-03-10)
PROC: 5A09357 Assistance with Respiratory Ventilation, Less than 24 Consecutive Hours, Continuous Positive Airway Pressure (ICD-10-PCS; 2018-03-11)
PROC: 5A09357 Assistance with Respiratory Ventilation, Less than 24 Consecutive Hours, Continuous Positive Airway Pressure (ICD-10-PCS; 2018-03-12)
PROC: 30233N1 Transfusion of Nonautologous Red Blood Cells into Peripheral Vein, Percutaneous Approach (ICD-10-PCS; 2018-03-17)
DX: N17.0 Acute kidney failure with tubular necrosis (principal); J96.01 Acute respiratory failure with hypoxia; J96.02 Acute respiratory failure with hypercapnia; J18.9 Pneumonia, unspecified organism; J44.0 Chronic obstructive pulmonary disease with (acute) lower respiratory infection; D64.9 Anemia, unspecified; K21.9 Gastro-esophageal reflux disease without esophagitis; F20.9 Schizophrenia, unspecified; E87.5 Hyperkalemia; Z53.21 Procedure and treatment not carried out due to patient leaving prior to being seen by health care provider; F41.0 Panic disorder [episodic paroxysmal anxiety]; E78.00 Pure hypercholesterolemia, unspecified; I10 Essential (primary) hypertension; F31.9 Bipolar disorder, unspecified; E87.2 Acidosis; Z23 Encounter for immunization; Z88.6 Allergy status to analgesic agent
CPT/HCPCS: 36415; 36556; 36600; 71045; 76775; 80053; 80202; 80305; 80320; 81001; 82272; 82570; 82728; 82803; 82810; 82948; 83540; 83550; 83605; 83735; 84100; 84145; 84300; 85018; 85025; 85027; 86885; 86900; 86901; 86920; 87040; 87070; 87088; 87207; 90732; 93005; 94002; 94003; 94640; 94660; 94667; 94668; 94760; 96365; 96375; 97110; 97116; 97162; 97530; 97535; 99291; A6212; A6213; A6222; A6257; A6258; A7015; C1751; C1758; J0885; J1100; J1644; J1650; J1940; J2060; J2250; J2270; J2274; J2405; J2543; J2704; J2920; J2930; J3370; J3490; J7030; J7512; P9016